=== PATIENT | female | born 1990 | race Caucasian/White ===

== ENCOUNTER 2017-06-26 00:57 | Emergency (ER) | payer MEDICAID ==
[~2017-06-26] VITALS: Ht 170.2 cm; Wt 78.5 kg
[~2017-06-26 00:57] MED LIST: RISP2TAB PO
--- NOTE | 2017-06-26 00:57 | NUR ---
PT PLACED IN BED 12 BY EMS.
[2017-06-26 01:02] VITALS: BP 121/76
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
[2017-06-26] MEDS ORDERED: NEOMYCIN/POLYMYXIN/BACITRACIN 0.9 GM/1 PKT TP ONE (01:50)
[2017-06-26] MEDS ORDERED: ACETAMINOPHEN EXTRA STRENGTH 500 MG TAB PO ONE (01:50)
[2017-06-26 03:15] VITALS: BP 121/76
--- NOTE | 2017-06-26 03:15 | NUR ---
Patient discharged with v/s stable. Written and verbal after care instructions given and explained. Patient alert, oriented and verbalized understanding of instructions. Ambulatory with steady gait. All questions addressed prior to discharge. ID band removed. Patient advised to follow up with PMD. Rx of NEOSPORIN, TYLENOL 500MG given. Patient educated on indication of medication including possible reaction and side effects. Opportunity to ask questions provided and answered.
--- NOTE | 2017-06-26 04:43 | NUR ---
Note justinodirk in EDM - 06/26/17 at 0444 by MAGAN Patient discharged with v/s stable. Written and verbal after care instructions given and explained. Patient alert, oriented and verbalized understanding of instructions. Ambulatory with steady gait. All questions addressed prior to discharge. ID band removed. Patient advised to follow up with PMD. Rx of NEOSPORIN, TYLENOL 500MG given. Patient educated on indication of medication including possible reaction and side effects. Opportunity to ask questions provided and answered.
== END 2017-06-26 04:43 | disposition home or self-care (01) ==
LOC: MED 00:57
DX: S61.217A Laceration without foreign body of left little finger without damage to nail, initial encounter (principal); S60.221A Contusion of right hand, initial encounter; Z79.899 Other long term (current) drug therapy; Y08.89XA Assault by other specified means, initial encounter; Y93.89 Activity, other specified; Y92.89 Other specified places as the place of occurrence of the external cause; Y99.8 Other external cause status
CPT/HCPCS: 73130; 90471; 90715; 99284; Q0092

== ENCOUNTER 2022-10-21 17:52 | Emergency (ER) | payer MEDICAID, OTHER ==
[~2022-10-21] VITALS: Ht 170.2 cm; Wt 98.9 kg
[2022-10-21 19:16] VITALS: BP 134/80
--- NOTE | 2022-10-21 20:52 | NUR ---
CALLED [facility] IN AND OUTSIDE OF LOBBY, NO ANSWER.LWBS
== END 2022-10-21 20:57 | disposition left against medical advice (07) ==
LOC: MED 17:52
DX: F41.9 Anxiety disorder, unspecified (principal); Z53.21 Procedure and treatment not carried out due to patient leaving prior to being seen by health care provider
CPT/HCPCS: 99281